=== PATIENT | female | born 1955 | race Caucasian/White ===

== ENCOUNTER 2022-02-04 14:45 | Inpatient (IN) ==
[2022-02-04 15:26] LABS: Basophils % 0.2 % (0.0-0.8); Hematocrit 41.3 VOL% (35.7-47.0); Hemoglobin 13.9 GM/DL (12.0-16.0); Immature Granulocytes % 0.5 %; Immature Granulocytes Absolute 0.04 #; Lymphocytes # 0.8 10*3/uL (1.4-4.0); Lymphocytes % 9.6 % (21.3-54.2); Mean Corpuscular HGB Conc 33.7 GM/DL (32-36); Mean Corpuscular Volume 92.8 FL (87-102); Mean Platelet Volume 9.8 FL (9.6-12.0); Monocytes # 0.3 10*3/uL (0.11-0.8); Monocytes % 3.2 % (1.7-12.7); Neutrophils % 86.5 % (38.7-73.9); Platelet Count 279 T/CUMM (130-400); Red Blood Count 4.45 MC/CUMM (3.8-5.5); Red Cell Distribution Width 12.5 % (9.3-17.3); White Blood Count 8.5 T/CUMM (4-12)
[2022-02-04 16:03] LABS: Calcium 9.5 MG/DL (8.5-10.1); Osmolality,Calculated 280.5 MOS/KG (273-304); Potassium 3.7 MMOL/L (3.5-5.1)
[2022-02-04] MEDS ORDERED: ASPIRIN CHEW 81 MG TABLET PO STA (16:49)
[2022-02-04] MEDS ORDERED: ENOXAPARIN 60 MG/0.6 ML SYRINGE SUBCUT STA (16:49)
[2022-02-04] MEDS ORDERED: SODIUM CHLORIDE 0.9% 1,000 ML IV STA (16:50)
[2022-02-04] MEDS ORDERED: METOPROLOL SUCCINATE XL 25 MG TABLET PO ONE (17:31)
[2022-02-04] MEDS ORDERED: GLUCAGON 1 MG VIAL IM PRN (18:13)
[2022-02-04] MEDS ORDERED: ONDANSETRON 4 MG/2 ML VIAL IV PRN (18:13)
[2022-02-04] MEDS ORDERED: hydrALAZINE 20 MG/1 ML VIAL IV PRN (18:13)
[2022-02-04] MEDS ORDERED: DEXTROSE 10% 250 ML BAG IV PRN (18:13)
[2022-02-04] MEDS ORDERED: MORPHINE 2 MG/1 ML SYRINGE IV PRN (18:13)
[2022-02-04] MEDS ORDERED: ACETAMINOPHEN 325 MG TABLET PO PRN (18:13)
[2022-02-04] MEDS ORDERED: NITROGLYCERIN SL 0.4 MG TABLET SL PRN (18:37)
[2022-02-04] MEDS: ENOXAPARIN 80 MG/0.8 ML SYRINGE SUBCUT SCH (19:37)
[2022-02-04] MEDS ORDERED: TICAGRELOR 90 MG TABLET PO ONE (19:56)
[2022-02-04] MEDS: ATORVASTATIN 80 MG TABLET PO SCH (21:27)
[2022-02-04] MEDS: METOPROLOL TARTRATE 25 MG TABLET PO SCH (21:27)
[2022-02-04] MEDS: SODIUM CHLORIDE 0.9% 1,000 ML IV SCH (21:28)
[2022-02-05] MEDS ORDERED: DIAZEPAM 5 MG TABLET PO ONE (06:11)
[2022-02-05] MEDS ORDERED: diphenhydrAMINE CAP 50 MG CAPSULE PO ONE (06:11)
[2022-02-05] MEDS: ENOXAPARIN 80 MG/0.8 ML SYRINGE SUBCUT SCH (06:29)
[2022-02-05] MEDS ORDERED: NITROGLYCERIN DRIP 50 MG/250 ML BOTTLE IV ONE (06:44)
[2022-02-05] MEDS ORDERED: HEPARIN/NACL 0.9% 2 UNITS/ML 2,000 UNIT/1,000 ML BAG IV ONE (06:44)
[2022-02-05] MEDS ORDERED: VERAPAMIL 5 MG/2 ML VIAL ONE (06:45)
[2022-02-05 07:06] LABS: Basophils % 0.4 % (0.0-0.8); Eosinophils # 0.1 10*3/uL (0.0-0.87); Eosinophils % 0.7 % (0.00-10.9); Hematocrit 39.3 VOL% (35.7-47.0); Hemoglobin 12.9 GM/DL (12.0-16.0); Immature Granulocytes % 0.3 %; Immature Granulocytes Absolute 0.02 #; Lymphocytes # 2.2 10*3/uL (1.4-4.0); Lymphocytes % 30.7 % (21.3-54.2); Mean Corpuscular HGB Conc 32.8 GM/DL (32-36); Mean Corpuscular Volume 94.2 FL (87-102); Mean Platelet Volume 10.8 FL (9.6-12.0); Monocytes # 0.7 10*3/uL (0.11-0.8); Monocytes % 9.9 % (1.7-12.7); Platelet Count 254 T/CUMM (130-400); Red Blood Count 4.17 MC/CUMM (3.8-5.5); Red Cell Distribution Width 12.6 % (9.3-17.3); White Blood Count 7.3 T/CUMM (4-12)
[2022-02-05 07:31] LABS: Albumin 3.3 G/DL (3.4-5.0); Bilirubin,Total 0.6 MG/DL (0.20-1.00); Calcium 8.7 MG/DL (8.5-10.1); Osmolality,Calculated 285.8 MOS/KG (273-304); Potassium 3.4 MMOL/L (3.5-5.1); Risk Ratio 4.49; Thyroid Stimulating Hormone 2.93 uIU/ml (0.358-3.74); Total Protein 6.7 G/DL (6.4-8.2)
[2022-02-05] MEDS ORDERED: MIDAZOLAM 2 MG/2 ML VIAL ONE ×2 (07:33→07:47)
[2022-02-05] MEDS ORDERED: fentaNYL 100 MCG/2 ML VIAL ONE (07:34)
[2022-02-05] MEDS ORDERED: HEPARIN 5,000 UNIT/1 ML VIAL ONE (07:40)
[2022-02-05] MEDS ORDERED: ENOXAPARIN 60 MG/0.6 ML SYRINGE ONE (07:45)
[2022-02-05] MEDS ORDERED: POTASSIUM CHLORIDE 20 MEQ TABLET PO ONE (07:52)
[2022-02-05] MEDS ORDERED: TICAGRELOR 90 MG TABLET ONE (08:14)
[2022-02-05] MEDS ORDERED: ASPIRIN CHEW 81 MG TABLET PO SCH (09:00)
[2022-02-05] MEDS: TICAGRELOR 90 MG TABLET PO SCH ×2 (09:33→20:21)
[2022-02-05] MEDS: METOPROLOL TARTRATE 25 MG TABLET PO SCH ×2 (09:34→20:21)
[2022-02-05] MEDS: LOSARTAN 25 MG TABLET PO SCH (09:35)
[2022-02-05] MEDS: PANTOPRAZOLE 40 MG TABLET PO SCH (09:35)
[2022-02-05] MEDS: ASPIRIN EC 81 MG TABLET PO SCH (09:35)
[2022-02-05] MEDS: SODIUM CHLORIDE 0.9% 1,000 ML IV SCH ×2 (09:36→13:52)
[2022-02-05] MEDS ORDERED: LOPERAMIDE 2 MG CAPSULE PO PRN (17:51)
[2022-02-05] MEDS: ATORVASTATIN 80 MG TABLET PO SCH (20:21)
[2022-02-06 03:45] LABS: Basophils % 0.3 % (0.0-0.8); Eosinophils # 0.1 10*3/uL (0.0-0.87); Eosinophils % 1.6 % (0.00-10.9); Hematocrit 38.1 VOL% (35.7-47.0); Hemoglobin 12.6 GM/DL (12.0-16.0); Immature Granulocytes % 0.3 %; Immature Granulocytes Absolute 0.02 #; Lymphocytes # 1.9 10*3/uL (1.4-4.0); Lymphocytes % 25.1 % (21.3-54.2); Mean Corpuscular HGB Conc 33.1 GM/DL (32-36); Mean Corpuscular Volume 94.8 FL (87-102); Mean Platelet Volume 10.3 FL (9.6-12.0); Monocytes # 0.7 10*3/uL (0.11-0.8); Monocytes % 9.2 % (1.7-12.7); Neutrophils % 63.5 % (38.7-73.9); Platelet Count 227 T/CUMM (130-400); Red Blood Count 4.02 MC/CUMM (3.8-5.5); Red Cell Distribution Width 12.9 % (9.3-17.3); White Blood Count 7.5 T/CUMM (4-12)
[2022-02-06] MEDS: SODIUM CHLORIDE 0.9% 1,000 ML IV SCH (03:54)
[2022-02-06 04:02] LABS: Calcium 8.4 MG/DL (8.5-10.1); Osmolality,Calculated 284.1 MOS/KG (273-304); Potassium 3.5 MMOL/L (3.5-5.1)
[2022-02-06] MEDS: LOSARTAN 25 MG TABLET PO SCH (10:17)
[2022-02-06] MEDS: TICAGRELOR 90 MG TABLET PO SCH (10:17)
[2022-02-06] MEDS: PANTOPRAZOLE 40 MG TABLET PO SCH (10:17)
[2022-02-06] MEDS: METOPROLOL TARTRATE 25 MG TABLET PO SCH (10:17)
[2022-02-06] MEDS: ASPIRIN EC 81 MG TABLET PO SCH (10:17)
[2022-02-06 12:56] VITALS: BP 118/71
== END 2022-02-06 12:15 | disposition home or self-care (01) | DRG 247 ==
LOC: N.EDINP 14:45 → N.ED 14:45 → N.TELES 18:49 → SUATTDRO 20:02
PROVIDERS: ADMIT Family Medicine; ATTEND Hospitalist
PROC: CLCCHCL (ICD-10-PCS; 2022-02-05 08:45)